=== PATIENT | female | born 1975 | race African-American/Black ===

== ENCOUNTER 2016-09-05 13:30 | Emergency (ER) | payer MEDICAID ==
[~2016-09-05] VITALS: Ht 162.6 cm; Wt 68.0 kg
[2016-09-05] MEDS ORDERED: CYCLOBENZAPRINE 10MG TABLET PO SCH (14:45)
[2016-09-05 16:10] VITALS: BP 126/85
== END 2016-09-05 16:22 | disposition home or self-care (01) ==
LOC: ER 13:46
DX: S16.1XXA Strain of muscle, fascia and tendon at neck level, initial encounter (principal); M54.5 Low back pain; V43.52XA Car driver injured in collision with other type car in traffic accident, initial encounter; Y93.89 Activity, other specified; Y92.488 Other paved roadways as the place of occurrence of the external cause
CPT/HCPCS: 72040; 99284